=== PATIENT | male | born 1995 | race Caucasian/White ===

== ENCOUNTER 2019-08-19 17:43 | Emergency (ER) | payer OTHER ==
[~2019-08-19] VITALS: Ht 182.9 cm; Wt 61.2 kg
[2019-08-19 17:57] VITALS: BP_SYST 118
--- NOTE | 2019-08-19 18:02 | NUR ---
Patient to ER bed 06 to gown for evaluation. Side rails up.
--- NOTE | 2019-08-19 18:04 | NUR ---
TAMMY Brito at bedside examining patient.
--- NOTE | 2019-08-19 18:07 | NUR ---
RN assesses pt. MD has ordered for sutures. RN obtains all supplies. pt reports fall off skateboard. pt presents with a lip laceration, and right elbow abrasion. RN was ordered to shave pts mustache near the laceration area.
[2019-08-19] MEDS ORDERED: LIDOCAINE 1% 10 MG/ML, 50 ML MDV INJ ONE (18:15)
[2019-08-19] MEDS ORDERED: BACITRACIN 1 GM OINT TP ONE ×2 (18:15→18:22)
[2019-08-19] MEDS ORDERED: LIDOCAINE 1%, 20 ML MDV 20 ML ONE (18:22)
--- NOTE | 2019-08-19 18:31 | NUR ---
RN has cleansed the left ear, and the right elbow, and has shaved the mustache as ordered.
[2019-08-19 18:59] VITALS: BP_SYST 118
--- NOTE | 2019-08-19 19:00 | NUR ---
Patient given written and verbal discharge instructions and verbalizes understanding. ER MD discussed with patient the results and treatment provided. Patient in stable condition. ID arm band removed. and dressing applied, no active bleeding. Rx of ibuprofen given. Patient educated on pain management and to follow up with PMD. Pain Scale . Opportunity for questions provided and answered. Medication side effect fact sheet provided.
== END 2019-08-19 19:00 | disposition home or self-care (01) ==
LOC: SED 17:43
DX: S01.511A Laceration without foreign body of lip, initial encounter (principal); S01.312A Laceration without foreign body of left ear, initial encounter; S50.311A Abrasion of right elbow, initial encounter; V00.131A Fall from skateboard, initial encounter; Y93.51 Activity, roller skating (inline) and skateboarding; Y92.89 Other specified places as the place of occurrence of the external cause; Y99.8 Other external cause status
CPT/HCPCS: 12011; 70450; 99284; J2001

== ENCOUNTER 2019-10-01 12:13 | Emergency (ER) | payer OTHER ==
[~2019-10-01] VITALS: Ht 182.9 cm; Wt 68.0 kg
[2019-10-01 12:13] VITALS: BP_SYST 129
--- NOTE | 2019-10-01 12:15 | NUR ---
BROUGHT IN BY ROSA EUCEDA AND PLACED IN HALLWAY BED. REPORT GIVEN TO LIAT
--- NOTE | 2019-10-01 12:20 | NUR ---
DR PAGE AT BEDSIDE FOR EVALUATION
--- NOTE | 2019-10-01 12:28 | NUR ---
Patient given written and verbal discharge instructions and verbalizes understanding. ER MD discussed with patient the results and treatment provided. Patient in stable condition. ID arm band removed. OK TO BOOK PAPER GIVEN TO Rx of NONE given. Patient educated on pain management and to follow up with PMD. Pain Scale 0/10. Opportunity for questions provided and answered. Medication side effect fact sheet provided.
== END 2019-10-01 12:28 | disposition home or self-care (01) ==
LOC: SED 12:13
DX: Z02.89 Encounter for other administrative examinations (principal)
CPT/HCPCS: 99283

== ENCOUNTER 2023-08-28 14:53 | Emergency (ER) | payer MEDICAID, OTHER ==
[~2023-08-28] VITALS: Ht 180.3 cm; Wt 68.0 kg
[2023-08-28 15:00] VITALS: BP_SYST 116; PULSE 73; RESP 19; TEMP 98; O2SAT 98
[2023-08-28 15:30] VITALS: BP_SYST 116; PULSE 73; RESP 19; TEMP 98; O2SAT 98
== END 2023-08-28 15:30 | disposition left against medical advice (07) ==
LOC: SED 14:53
DX: S09.90XA Unspecified injury of head, initial encounter (principal); M54.2 Cervicalgia; Z79.899 Other long term (current) drug therapy; V48.4XXA Person boarding or alighting a car injured in noncollision transport accident, initial encounter; Y93.89 Activity, other specified; Y92.89 Other specified places as the place of occurrence of the external cause; Y99.8 Other external cause status
CPT/HCPCS: 99281